=== PATIENT | male | born 1965 | race Caucasian/White ===

== ENCOUNTER 2019-04-10 08:03 | Day surgery (SDC) | payer BC ==
--- NOTE | 2019-04-07 10:02 | HP ---
AMENDED REPORT NOW INCLUDES DESIGNATED COSIGNER PREOPERATIVE HISTORY AND PHYSICAL: DATE OF SURGERY/ADMISSION: 04/10/19 DATE OF OFFICE VISIT/ENCOUNTER: 04/03/19 ATTENDING SURGEON: Dr. Vera Chacon.* (DICTATED BY MOUSTAPHA YANES) PROCEDURE: Lateral release, right elbow. 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 He has been having problems with right elbow lateral epicondylitis ongoing now since October of 2018. He has trouble doing some of the things he is required to do at work, particularly things like climbing amin and doing a lot of belaying. At this point, he is having discomfort with any use of the right arm. He has received 2 cortisone injections for this problem over time; however, the symptoms have returned. He has also participated in physical therapy and worn a counterforce brace, but the symptoms are not relieved. He approximately 8 years ago had a lateral release of his left elbow with Dr. Rowan. He would now like to proceed with a lateral release for his right elbow and has consented for surgery. PAST MEDICAL HISTORY: 1. Gout. 2. Benign prostatic hypertrophy. 3. History of hypertension. 4. GERD. 5. Anxiety/depression. PAST SURGICAL HISTORY: 1. Left elbow lateral release. 2. Right shoulder. 3. Left knee. 4. Appendectomy. 5. Left pinky cyst excision. 6. Right elbow bursectomy approximately 17 years ago. CURRENT MEDICATIONS: 1. Tewm-sss-yscvrxr allergy medication. 2. Allopurinol 100 mg daily. 3. Ativan p.r.n. 4. Cardura 1 mg daily. 5. Citalopram hydrobromide. 6. Omeprazole. ALLERGIES: No known drug allergies. FAMILY MEDICAL HISTORY: Hypertension, cancer. 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 He denies tobacco use and recreational drug use. He drinks alcohol on occasion. REVIEW OF SYSTEMS: Negative for general, cephalic, cardiovascular, respiratory , GI, , other musculoskeletal, integumentary, endocrine, neurologic, and hematologic symptoms. Infectious Disease: Negative for MRSA, hepatitis C, HIV. PHYSICAL EXAMINATION GENERAL: Well-developed, well-nourished 53-year-old male in no acute distress. VITAL SIGNS: Height 5 feet 9 inches, weight 238 pounds, pulse rate 62, blood pressure 142/86. HEENT: Normocephalic and atraumatic. Pupils are equal, round, and reactive to light and accommodation. Extraocular movements are intact. No palpable lymph nodes. Throat is clear. PULMONARY: Lungs are clear to auscultation bilaterally. No wheezes, rales, or rhonchi. CARDIOVASCULAR: Regular rate and rhythm. No murmurs, rubs, or gallops. No edema. ABDOMEN: Positive bowel sounds. Soft and nontender. NEUROLOGICAL: Alert and oriented x3. Cranial nerves II through XII are intact. Sensation is intact to light touch. MUSCULOSKELETAL: On exam of his right elbow, there is no visible swelling. He has exquisite tenderness to palpation at the lateral epicondyle and down into the forearm musculature. He has good range of motion of his elbow with minimal discomfort. Increased pain with wrist extension against resistance and forearm supination. Neurovascular function is intact. DIAGNOSTIC STUDIES: X-ray of the right elbow AP, lateral, and oblique are unremarkable. IMPRESSION: Right elbow lateral epicondylitis. PLAN: The patient is scheduled to undergo a lateral release right elbow with Dr. Chacon on 04/10/19. He will return to the office 10 days postop for followup and suture removal. A prescription for Carolina was e-scribed to the patient's pharmacy for postoperative pain management. MOUSTAPHA YANES [id number]/[facility] #: [id number] SERGE
[~2019-04-10 08:03] MED LIST: Buffered Lidocaine 1% SYRIN* 1 ML/SYRINGE INTRADERM ONE; Lactated Ringers 1000 ML Bag* 1,000 ML IV SCH; Sodium Citrate/Citric Acid* 15 ML UDC PO ONE
[2019-04-10] MEDS ORDERED: Sodium Citrate/Citric Acid* 15 ML UDC ONE (08:10)
[2019-04-10] MEDS ORDERED: Bupivacaine 0.5%* 50 ML MDV VIAL ONE (08:54)
[2019-04-10] MEDS ORDERED: fentaNYL* 50 MCG/ML 2 ML VIAL (100 MCG VIAL) IV PRN (08:57)
[2019-04-10] MEDS ORDERED: Naloxone* 0.4 MG/ML 1 ML VIAL IV PRN (08:57)
[2019-04-10] MEDS ORDERED: Ketorolac INJ* 30 MG/ML 1 ML VIAL ONE (09:21)
[2019-04-10] MEDS ORDERED: Dexamethasone IV* 4 MG/ML 1 ML (4 MG) ONE (09:21)
[2019-04-10] MEDS ORDERED: fentaNYL* 50 MCG/ML 2 ML VIAL (100 MCG VIAL) ONE (09:21)
[2019-04-10] MEDS ORDERED: Propofol* 10 MG/ML 20 ML BTL ONE (09:21)
[2019-04-10] MEDS ORDERED: Lidocaine 2% PF * 5 ML VIAL ONE (09:21)
[2019-04-10 11:23] VITALS: BP 145/87
--- NOTE | 2019-04-10 16:11 | OP ---
DATE OF OPERATION: 04/10/19 [facility] DATE OF : 69 SURGEON: Dr. Chacon BOBBIN DISKER: MOUSTAPHA Steinberg ANESTHESIA: General. PRE-OP DIAGNOSIS: Right lateral epicondylitis. POST-OP DIAGNOSIS: Right lateral epicondylitis. OPERATIVE PROCEDURE: Right elbow lateral release. ESTIMATED BLOOD LOSS: Zero. TOURNIQUET TIME: About 25 minutes. INDICATIONS FOR PROCEDURE: Jeromy is a 53-year-old man who has chronic right elbow pain on the lateral aspect. He had a similar problem several years ago on his other elbow and had a lateral release and did very well with that. He has failed conservative treatment and presents for right elbow lateral release. DESCRIPTION OF PROCEDURE: The patient was brought to the operating room, was given a general anesthetic and placed in the supine position on the operating table with a tourniquet around his right upper arm. The skin of his right upper extremity was prepped and draped in the usual sterile fashion. The upper extremity was exsanguinated and the tourniquet elevated to 250 mmHg. A lateral longitudinal incision was made centered at the lateral epicondyle were dissected sharply through the subcutaneous tissue down to the extensor supinator origin. A distally based U-shaped flap was created of the extensor origin and was subperiosteally dissected off of the lateral epicondyle. The underlying degenerated tendon tissue was debrided sharply with a knife and with a rongeur. There was a marked amount of erythema and inflammation at the proximal insertion of the tendon. The bone was debrided down to bleeding bed and then the tendon was repaired after retracting about a centimeter with a #1 Vicryl suture. The wound was copiously irrigated with saline. The subcutaneous tissue was closed with 2-0 Vicryl and skin with skin barrett. The wound was dressed with Xeroform, 4x4, Webril, an and Hector wrap. The patient tolerated the procedure well and was brought to the recovery room in good conditions. [id number]/[facility] #: [id number] MTDHal
== END 2019-04-10 11:11 | disposition home or self-care (01) ==
LOC: OREAST 08:03
PROVIDERS: ATTEND Orthopaedic Surgery
DX: M77.11 Lateral epicondylitis, right elbow (principal); M10.9 Gout, unspecified; N40.0 Benign prostatic hyperplasia without lower urinary tract symptoms; K21.9 Gastro-esophageal reflux disease without esophagitis; F41.8 Other specified anxiety disorders; G47.33 Obstructive sleep apnea (adult) (pediatric)
CPT/HCPCS: 88304; A9270-GY; J1100; J1885; J2704; J3010; J3490